=== PATIENT | female | born 1990 | race Caucasian/White ===

== ENCOUNTER 2019-09-18 04:21 | Emergency (ER) | payer MEDICAID ==
[2019-09-18] MEDS ORDERED: Acetaminophen 500 MG Tab PO ONE (05:19)
--- NOTE | 2019-09-18 05:27 | EDM.PDOC ---
ED HPI GENERAL MEDICAL PROBLEM - General Chief Complaint: Lower Extremity Injury/Pain Stated Complaint: PAIN IN LT ANKLE/FOOT Time Seen by Provider: 09/18/19 05:10 Source of Information: Reports: Patient History Limitations: Reports: No Limitations - History of Present Illness INITIAL COMMENTS - FREE TEXT/NARRATIVE: 29 yo female missed a step in the dark tonight and injured her L lateral foot. Says she is unable to bear weight. No self tx. 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: Reports: Other (see below) (none) left foot Pain Score (Numeric/FACES): 9 - Related Data Allergies Allergy/AdvReac Type Severity Reaction Status Date / Time No Known Allergies Allergy Verified 09/18/19 04:36 Home Meds: Home Meds * Control 1 tab PO DAILY 09/18/19 [History] FLUoxetine HCl [Prozac] 20 mg PO DAILY 09/18/19 [History] Past Medical History [employer] History: Reports: Psychiatric History: Reports: Depression Social & Family History - Tobacco Use Smoking Status *Q: Never Smoker - Caffeine Use Caffeine Use: Reports: Coffee - Alcohol Use Days Per Week of Alcohol Use: 4 Number of Drinks Per Day: 5 Total Drinks Per Week: 20 - Recreational Drug Use Recreational Drug Use: No Review of Systems - Review of Systems Review Of Systems: See Below Constitutional: Reports: No Symptoms Musculoskeletal: Reports: Foot Pain (left, dorsal) Skin: Reports: No Symptoms Neurological: Reports: No Symptoms ED EXAM, GENERAL - Physical Exam Exam: See Below Exam Limited By: No Limitations General Appearance: Alert, WD/WN, No Apparent Distress Extremities: Normal Inspection, Normal Range of Motion, No Pedal Edema, Other (tender dorsally). No: Non-Tender, Pedal Edema, Limited Range of Motion, Increased Warmth, Redness Neurological: Alert, Oriented, CN II-XII Intact, Normal Cognition, No Motor/Sensory Deficits, Other (unable to bear weight.) Psychiatric: Normal Affect, Normal Mood Skin Exam: Warm, Dry, Intact, Normal Color, No Rash Course - Vital Signs Last Recorded V/S: Last Vital Signs Temp 36.8 C 09/18/19 04:41 Pulse 87 09/18/19 04:41 Resp 16 09/18/19 04:41 BP 127/76 09/18/19 04:41 Pulse Ox 96 09/18/19 04:41 - Orders/Labs/Meds Orders: Active Orders 24 hr Category Date Time Status Foot Comp Min 3V Lt [CR] Stat Exams 09/18/19 04:46 Taken Meds: Medications Discontinued Medications Generic Name Dose Route Start Last Admin Trade Name Phillip PRN Reason Stop Dose Admin Acetaminophen 1,000 mg 09/18/19 05:19 Tylenol Extra Strength PO 09/18/19 05:20 ONETIME ONE - Radiology Interpretation Free Text/Narrative:: L foot X-ray-neg Departure - Departure Time of Disposition: 05:30 Disposition: Home, Self-Care 01 Condition: Good Clinical Impression: Left foot pain - Discharge Information *PRESCRIPTION DRUG MONITORING PROGRAM REVIEWED*: No *COPY OF PRESCRIPTION DRUG MONITORING REPORT IN PATIENT RONALD: No Instructions: Foot Sprain Referrals: PCP,None [Primary Care Provider] - Additional Instructions: Take acetaminophen and/or ibuprofen as needed for pain relief. Crutch walking with weight bearing as tolerated. Recheck in a week if still not able to bear weight. Sepsis Event Note (ED) - Evaluation Sepsis Screening Result: No Definite Risk - Focused Exam Vital Signs: Vital Signs Temp Pulse Resp BP Pulse Ox 09/18/19 04:41 36.8 C 87 16 127/76 96 - My Orders Last 24 Hours: My Active Orders 09/18/19 04:46 Foot Comp Min 3V Lt [CR] Stat - Assessment/Plan Last 24 Hours: My Active Orders 09/18/19 04:46 Foot Comp Min 3V Lt [CR] Stat
--- NOTE | 2019-09-20 09:17 | CR ---
Foot Comp Min 3V Lt CLINICAL HISTORY: Lateral foot pain, injury FINDINGS: There is a faint transverse lucency through the proximal metaphysis of the fifth metatarsal. This is seen on 2 views but not the third IMPRESSION: Fracture through the base of the fifth metatarsal is not excluded. If clinically relevant repeat short-term follow-up recommended.
== END 2019-09-18 05:42 | disposition home or self-care (01) ==
LOC: JP.ED 04:21
DX: M79.672 Pain in left foot (principal); F32.9 Major depressive disorder, single episode, unspecified; Z79.899 Other long term (current) drug therapy; X50.9XXA Other and unspecified overexertion or strenuous movements or postures, initial encounter
CPT/HCPCS: 73630; 99283; A9270